=== PATIENT | male | born 1995 | race Two or more races ===

== ENCOUNTER 2017-12-18 02:02 | Emergency (ER) | payer SELFPAY ==
[~2017-12-18] VITALS: Ht 185.4 cm; Wt 79.4 kg
[2017-12-18 02:15] VITALS: BP 141/93
== END 2017-12-18 05:25 | disposition home or self-care (01) ==
LOC: ER 02:06
DX: S09.8XXA Other specified injuries of head, initial encounter (principal); W01.10XA Fall on same level from slipping, tripping and stumbling with subsequent striking against unspecified object, initial encounter; Y93.89 Activity, other specified; Y92.89 Other specified places as the place of occurrence of the external cause; Y99.8 Other external cause status
CPT/HCPCS: 99281; A4606; Z7610; Z7502